=== PATIENT | female | born 1945 | race Caucasian/White ===

== ENCOUNTER 2018-01-30 11:39 | Inpatient (IN) | payer OTHER, MEDICAID ==
[~2018-01-30] VITALS: Ht 154.9 cm; Wt 206.6 kg
[2018-01-30] MEDS ORDERED: FUROSEMIDE 40 MG/4 ML VIAL IV ONE (11:45)
[2018-01-30 12:11] LABS: Basophils # (auto) 0.1 uL; Basophils % (auto) 0.8 % (0.0-2.0); Eosinophils # (auto) 0.1 uL; Eosinophils % (auto) 1.1 % (0.0-7.0); Hematocrit 41.1 % (36.0-46.0); Hemoglobin 13.1 g/dL (12.2-16.2); Lymphocytes % (auto) 13.5 % (10.0-50.0); Mean Corpuscular Hemoglobin 30.4 pg (28.0-32.0); Mean Corpuscular Hgb Conc. 31.8 g/dL (32.0-36.0); Mean Corpuscular Volume 95.6 fL (80.0-100.0); Monocytes # (auto) 0.7 uL; Monocytes % (auto) 9.6 % (0.0-12.0); Neutrophils # (auto) 5.6 uL; Nucleated Red Blood Cells % 0.1 %; Platelet Count (auto) 242 10^3/uL (140-450); Red Cell Distribution Width 15.8 % (11.8-14.3); White Blood Cell 7.5 10^3/uL (4.4-10.8)
[2018-01-30 12:25] LABS: INR 1.15 (0.9-1.15); Partial Thromboplastin Time 26.8 sec (22.64-33.71); Prothrombin Time 12.5 sec (9.37-12.3)
[2018-01-30 12:31] LABS: Alanine Aminotransferase 42 U/L (13-56); Albumin 3.4 g/dL (3.4-5.0); Alkaline Phosphatase 126 U/L (45-117); Anion Gap 10 (5-15); Aspartate Aminotransferase 41 U/L (15-37); BUN/Creatinine Ratio 16.4; Bilirubin, Total 1.2 mg/dL (0.2-1.0); Blood Urea Nitrogen 27 mg/dL (7-18); Calcium 8.8 mg/dL (8.5-10.1); Carbon Dioxide 24 mmol/L (21-32); Chloride 103 mmol/L (98-107); GFR African American 39 mL/min; GFR Non-African American 32 mL/min; Glucose 95 mg/dL (74-106); Potassium 4.2 mmol/L (3.5-5.1); Sodium 137 mmol/L (136-145); Total Protein 7.7 g/dL (6.4-8.2)
[2018-01-30] MEDS ORDERED: ACETAMINOPHEN 500 MG TAB PO PRN (14:00)
[2018-01-30] MEDS ORDERED: LACTULOSE 20Gm/30ML SOLN PO PRN (14:00)
[2018-01-30] MEDS ORDERED: MORPHINE SULFATE 4 MG/ML SYR/VIAL IV PRN ×2 (14:00)
[2018-01-30] MEDS ORDERED: NITROGLYCERIN 0.4 MG SL TAB SL PRN (14:00)
[2018-01-30] MEDS ORDERED: HYDROcodone-ACET 5/325MG TAB PO PRN (14:00)
[2018-01-30] MEDS ORDERED: CARVEDILOL 3.125 MG TAB PO ONE (14:15)
[2018-01-30] MEDS ORDERED: NITROGLYCERIN 0.2MG/HR TOPICAL PATCH TD ONE (14:15)
[2018-01-30] MEDS ORDERED: ASPirin 81 mg TAB PO ONE (14:15)
[2018-01-30] MEDS ORDERED: ENOXAPARIN SOD 30 MG/0.3 ML SYRINGE SC ONE (14:15)
[2018-01-30] MEDS ORDERED: ENALAPRIL MALEATE 2.5 MG TAB PO ONE (14:15)
[2018-01-30] MEDS: SODIUM CHLOR 0.9% PF (SALINE LOCK) 10ML VIAL IV SCH ×2 (14:39→22:13)
[2018-01-30] MEDS: DOBUTamine 1000MCG/ML 250 ML IV SCH (15:16)
[2018-01-30] MEDS: MAGNESIUM OXIDE 400 MG TAB PO SCH ×2 (15:59→22:13)
[2018-01-30] MEDS: CARVEDILOL 3.125 MG TAB PO SCH (21:46)
[2018-01-30] MEDS ORDERED: FUROSEMIDE 40 MG/4 ML VIAL IV SCH (22:00)
[2018-01-30] MEDS: NYSTATIN TOPICAL CREAM 15GM TOP SCH (22:13)
[2018-01-30] MEDS: FUROSEMIDE 40 MG/4 ML VIAL IV SCH (22:13)
[2018-01-31] MEDS: DOBUTamine 1000MCG/ML 250 ML IV SCH ×2 (02:00→11:54)
[2018-01-31 04:07] LABS: Alanine Aminotransferase 38 U/L (13-56); Albumin 3.1 g/dL (3.4-5.0); Anion Gap 7 (5-15); Aspartate Aminotransferase 32 U/L (15-37); BUN/Creatinine Ratio 19.9; Blood Urea Nitrogen 30 mg/dL (7-18); Calcium 8.3 mg/dL (8.5-10.1); Carbon Dioxide 26 mmol/L (21-32); Chloride 103 mmol/L (98-107); GFR African American 43 mL/min; GFR Non-African American 36 mL/min; Glucose 94 mg/dL (74-106); Potassium 3.5 mmol/L (3.5-5.1); Sodium 136 mmol/L (136-145)
[2018-01-31 04:13] LABS: Alkaline Phosphatase 118 U/L (45-117); Bilirubin, Total 1.1 mg/dL (0.2-1.0); Total Protein 7.1 g/dL (6.4-8.2)
[2018-01-31 05:04] LABS: Cholesterol 100 mg/dL (< 200); HDL Cholesterol 33 mg/dL (40-59); LDL Cholesterol 66 mg/dL (< 100); Triglycerides 85 mg/dL (< 150)
[2018-01-31] MEDS: SODIUM CHLOR 0.9% PF (SALINE LOCK) 10ML VIAL IV SCH ×3 (06:00→22:19)
[2018-01-31 09:40] LABS: Urine Bacteria NONE SEEN /hpf (None Seen); Urine Blood Negative /uL (Negative); Urine Mucus FEW (None Seen); Urine Specific Gravity 1.019 (1.001-1.035); Urine WBC 7 /hpf (0 - 5)
[2018-01-31] MEDS ORDERED: POTASSIUM CHL 20 Meq TABLET PO SCH (10:00)
[2018-01-31] MEDS ORDERED: ENOXAPARIN SOD 40 MG/0.4 ML SYRINGE SC SCH ×2 (10:00)
[2018-01-31] MEDS ORDERED: ENALAPRIL MALEATE 2.5 MG TAB PO SCH (10:00)
[2018-01-31] MEDS: NITROGLYCERIN 0.2MG/HR TOPICAL PATCH TD SCH (10:37)
[2018-01-31] MEDS: CARVEDILOL 3.125 MG TAB PO SCH ×2 (10:38→22:18)
[2018-01-31] MEDS: POTASSIUM CHL 20 Meq TABLET PO SCH (10:42)
[2018-01-31] MEDS: NYSTATIN TOPICAL CREAM 15GM TOP SCH ×3 (10:42→22:27)
[2018-01-31] MEDS: ENOXAPARIN SOD 30 MG/0.3 ML SYRINGE SC SCH (10:42)
[2018-01-31] MEDS: ASPirin 81 mg TAB PO SCH (10:42)
[2018-01-31] MEDS: MAGNESIUM OXIDE 400 MG TAB PO SCH ×2 (10:42→22:17)
[2018-01-31] MEDS: FUROSEMIDE 40 MG/4 ML VIAL IV SCH (12:14)
[2018-01-31] MEDS: PROMETHAZINE HCL 25 MG/ML 1ML IV PRN (14:53)
[2018-01-31] MEDS: LORazepam 0.5 MG TAB PO PRN (17:01)
[2018-01-31 17:30] VITALS: BP 102/67
[2018-01-31 17:32] VITALS: BP 102/67
[2018-01-31] MEDS ORDERED: ASPI81TA27 PO (18:26)
[2018-01-31] MEDS ORDERED: LOSA25TA9 PO (18:26)
[2018-01-31] MEDS ORDERED: SPIR25TA89 PO (18:26)
[2018-01-31] MEDS ORDERED: CLOP75TA28 PO (18:26)
[2018-01-31] MEDS ORDERED: METO25TA5 PO (18:26)
[2018-01-31 20:00] VITALS: BP 106/66
[2018-01-31 22:00] VITALS: BP 106/66
[2018-01-31] MEDS ORDERED: FAMOTIDINE 20 MG TAB PO SCH (22:00)
[2018-02-01] MEDS: PROMETHAZINE HCL 25 MG/ML 1ML IV PRN (00:37)
[2018-02-01 06:00] VITALS: BP 85/52
[2018-02-01] MEDS: SODIUM CHLOR 0.9% PF (SALINE LOCK) 10ML VIAL IV SCH ×3 (07:09→21:33)
[2018-02-01 09:00] VITALS: BP 102/68
[2018-02-01] MEDS: ENOXAPARIN SOD 30 MG/0.3 ML SYRINGE SC SCH (09:24)
[2018-02-01] MEDS: FAMOTIDINE 20 MG TAB PO SCH (09:24)
[2018-02-01] MEDS: MAGNESIUM OXIDE 400 MG TAB PO SCH ×2 (09:25→21:34)
[2018-02-01] MEDS: ASPirin 81 mg TAB PO SCH (09:25)
[2018-02-01] MEDS: POTASSIUM CHL 20 Meq TABLET PO SCH (09:25)
[2018-02-01] MEDS: CARVEDILOL 3.125 MG TAB PO SCH ×2 (09:25→21:34)
[2018-02-01] MEDS: NITROGLYCERIN 0.2MG/HR TOPICAL PATCH TD SCH (09:26)
[2018-02-01] MEDS ORDERED: FUROSEMIDE 20 MG TAB PO SCH (10:00)
[2018-02-01] MEDS: NYSTATIN TOPICAL CREAM 15GM TOP SCH ×2 (10:15→21:36)
[2018-02-01 12:00] VITALS: BP 81/56
[2018-02-01] MEDS ORDERED: METOCLOPRAMIDE HCL 5MG/ml INJ 2ml VIAL IV ONE ×2 (12:30→12:45)
[2018-02-01] MEDS ORDERED: ALBUMIN 25% 50 ML IV ONE (12:30)
[2018-02-01] MEDS ORDERED: ONDANSETRON HCL 4 MG/2 ML VIAL IV PRN (13:45)
[2018-02-01] MEDS: DOBUTamine 1000MCG/ML 250 ML IV SCH (14:03)
[2018-02-01 17:00] VITALS: BP 107/67
[2018-02-01] MEDS ORDERED: METOCLOPRAMIDE HCL 5MG/ml INJ 2ml VIAL IV SCH (18:00)
[2018-02-02 00:14] VITALS: BP 118/68
[2018-02-02] MEDS: DOBUTamine 1000MCG/ML 250 ML IV SCH ×3 (00:36→21:16)
[2018-02-02 05:47] VITALS: BP 106/63
[2018-02-02 06:01] LABS: Basophils # (auto) 0.1 uL; Basophils % (auto) 0.8 % (0.0-2.0); Eosinophils # (auto) 0.1 uL; Eosinophils % (auto) 1.9 % (0.0-7.0); Hematocrit 36.8 % (36.0-46.0); Hemoglobin 11.9 g/dL (12.2-16.2); Lymphocytes # (auto) 1.1 uL; Lymphocytes % (auto) 14.3 % (10.0-50.0); Mean Corpuscular Hemoglobin 30.5 pg (28.0-32.0); Mean Corpuscular Hgb Conc. 32.3 g/dL (32.0-36.0); Mean Corpuscular Volume 94.2 fL (80.0-100.0); Monocytes # (auto) 0.6 uL; Monocytes % (auto) 8.4 % (0.0-12.0); Neutrophils # (auto) 5.7 uL; Neutrophils % (auto) 74.6 % (37.0-80.0); Platelet Count (auto) 191 10^3/uL (140-450); Red Blood Cells 3.91 10^6/uL (4.0-5.20); Red Cell Distribution Width 15.6 % (11.8-14.3); White Blood Cell 7.7 10^3/uL (4.4-10.8)
[2018-02-02 06:31] LABS: Albumin 3.4 g/dL (3.4-5.0); BUN/Creatinine Ratio 18.9; Bilirubin, Total 1.1 mg/dL (0.2-1.0); Calcium 8.3 mg/dL (8.5-10.1); Potassium 4.7 mmol/L (3.5-5.1)
[2018-02-02] MEDS: SODIUM CHLOR 0.9% PF (SALINE LOCK) 10ML VIAL IV SCH ×3 (06:40→21:14)
[2018-02-02] MEDS ORDERED: ADENOSINE 68 MG in GIVE UN-DILUTED 0 ML IV STA (08:22)
[2018-02-02 09:00] VITALS: BP 103/70
[2018-02-02] MEDS: NYSTATIN TOPICAL CREAM 15GM TOP SCH ×2 (09:25→22:00)
[2018-02-02] MEDS: ENOXAPARIN SOD 30 MG/0.3 ML SYRINGE SC SCH (09:26)
[2018-02-02] MEDS: MAGNESIUM OXIDE 400 MG TAB PO SCH ×2 (09:26→21:14)
[2018-02-02] MEDS: FAMOTIDINE 20 MG TAB PO SCH (09:26)
[2018-02-02] MEDS: ASPirin 81 mg TAB PO SCH (09:27)
[2018-02-02] MEDS: POTASSIUM CHL 20 Meq TABLET PO SCH (09:27)
[2018-02-02] MEDS: CLOPIDOGREL BISULFATE 75 MG TAB PO SCH (11:56)
[2018-02-02 13:00] VITALS: BP 108/73
[2018-02-02 17:00] VITALS: BP 116/66
[2018-02-02] MEDS: LORazepam 0.5 MG TAB PO PRN (17:30)
[2018-02-02 23:13] VITALS: BP 101/54
[2018-02-03 05:31] VITALS: BP 109/74
[2018-02-03] MEDS: SODIUM CHLOR 0.9% PF (SALINE LOCK) 10ML VIAL IV SCH ×3 (05:58→22:00)
[2018-02-03 07:02] LABS: Potassium 4.8 mmol/L (3.5-5.1)
[2018-02-03 07:08] LABS: Albumin 3.1 g/dL (3.4-5.0); Calcium 8.6 mg/dL (8.5-10.1)
[2018-02-03 07:11] LABS: Bilirubin, Total 1.4 mg/dL (0.2-1.0); Total Protein 6.5 g/dL (6.4-8.2)
[2018-02-03 08:50] VITALS: BP 110/67
[2018-02-03] MEDS ORDERED: DOBUTamine 1000MCG/ML 250 ML IV SCH (09:30)
[2018-02-03] MEDS: FAMOTIDINE 20 MG TAB PO SCH (09:49)
[2018-02-03] MEDS: CLOPIDOGREL BISULFATE 75 MG TAB PO SCH (09:49)
[2018-02-03] MEDS: ENOXAPARIN SOD 30 MG/0.3 ML SYRINGE SC SCH (09:49)
[2018-02-03] MEDS: MAGNESIUM OXIDE 400 MG TAB PO SCH ×2 (09:49→22:33)
[2018-02-03] MEDS: ASPirin 81 mg TAB PO SCH (09:49)
[2018-02-03] MEDS: NYSTATIN TOPICAL CREAM 15GM TOP SCH ×2 (09:50→22:00)
[2018-02-03] MEDS: DOBUTamine 1000MCG/ML 250 ML IV SCH (11:00)
[2018-02-03 12:37] VITALS: BP 109/55
[2018-02-03 17:00] VITALS: BP 110/63
[2018-02-03] MEDS: LORazepam 0.5 MG TAB PO PRN (17:58)
[2018-02-03 22:00] VITALS: BP 102/57
[2018-02-03] MEDS: TEMAZEPAM 15 MG CAP PO PRN (22:34)
[2018-02-04 05:00] VITALS: BP 91/54
[2018-02-04] MEDS: SODIUM CHLOR 0.9% PF (SALINE LOCK) 10ML VIAL IV SCH ×3 (06:00→21:16)
[2018-02-04 06:01] LABS: Basophils # (auto) 0 uL; Basophils % (auto) 0.7 % (0.0-2.0); Eosinophils # (auto) 0.2 uL; Eosinophils % (auto) 2.8 % (0.0-7.0); Hematocrit 35.3 % (36.0-46.0); Hemoglobin 11.7 g/dL (12.2-16.2); Lymphocytes # (auto) 0.8 uL; Lymphocytes % (auto) 13.5 % (10.0-50.0); Mean Corpuscular Hemoglobin 31.2 pg (28.0-32.0); Mean Corpuscular Hgb Conc. 33.2 g/dL (32.0-36.0); Mean Corpuscular Volume 94.1 fL (80.0-100.0); Monocytes # (auto) 0.7 uL; Monocytes % (auto) 10.7 % (0.0-12.0); Neutrophils # (auto) 4.5 uL; Neutrophils % (auto) 72.3 % (37.0-80.0); Platelet Count (auto) 182 10^3/uL (140-450); Red Blood Cells 3.75 10^6/uL (4.0-5.20); White Blood Cell 6.2 10^3/uL (4.4-10.8)
[2018-02-04 06:20] LABS: BUN/Creatinine Ratio 19.9; Calcium 8.1 mg/dL (8.5-10.1); Magnesium 2.8 mg/dL (1.6-2.6); Potassium 4.7 mmol/L (3.5-5.1)
[2018-02-04] MEDS: DOBUTamine 1000MCG/ML 250 ML IV SCH ×2 (07:40→08:29)
[2018-02-04 09:00] VITALS: BP 95/64
[2018-02-04] MEDS: MAGNESIUM OXIDE 400 MG TAB PO SCH ×2 (09:53→21:16)
[2018-02-04] MEDS: ENOXAPARIN SOD 30 MG/0.3 ML SYRINGE SC SCH (09:53)
[2018-02-04] MEDS: ASPirin 81 mg TAB PO SCH (09:53)
[2018-02-04] MEDS: FAMOTIDINE 20 MG TAB PO SCH (09:53)
[2018-02-04] MEDS: CLOPIDOGREL BISULFATE 75 MG TAB PO SCH (09:53)
[2018-02-04] MEDS: NYSTATIN TOPICAL CREAM 15GM TOP SCH ×2 (09:54→21:15)
[2018-02-04 13:00] VITALS: BP 100/59
[2018-02-04] MEDS: LORazepam 0.5 MG TAB PO PRN (14:23)
[2018-02-04 17:00] VITALS: BP 115/69
[2018-02-04] MEDS: TEMAZEPAM 15 MG CAP PO PRN (21:16)
[2018-02-04 23:19] VITALS: BP 108/65
[2018-02-05] VITALS (7 sets, daily range): BP systolic 87–114; BP diastolic 53–75
[2018-02-05] MEDS: SODIUM CHLOR 0.9% PF (SALINE LOCK) 10ML VIAL IV SCH ×2 (05:08→14:14)
[2018-02-05 06:48] LABS: Basophils # (auto) 0 uL; Basophils % (auto) 0.8 % (0.0-2.0); Eosinophils # (auto) 0.2 uL; Eosinophils % (auto) 2.9 % (0.0-7.0); Hematocrit 36.5 % (36.0-46.0); Hemoglobin 11.9 g/dL (12.2-16.2); Lymphocytes # (auto) 0.6 uL; Lymphocytes % (auto) 10.5 % (10.0-50.0); Mean Corpuscular Hgb Conc. 32.7 g/dL (32.0-36.0); Mean Corpuscular Volume 94.7 fL (80.0-100.0); Monocytes # (auto) 0.7 uL; Neutrophils # (auto) 4.6 uL; Neutrophils % (auto) 74.8 % (37.0-80.0); Platelet Count (auto) 189 10^3/uL (140-450); Red Blood Cells 3.85 10^6/uL (4.0-5.20); Red Cell Distribution Width 15.2 % (11.8-14.3); White Blood Cell 6.2 10^3/uL (4.4-10.8)
[2018-02-05 06:51] LABS: Potassium 4.8 mmol/L (3.5-5.1)
[2018-02-05] MEDS: DOBUTamine 1000MCG/ML 250 ML IV SCH (06:59)
[2018-02-05 07:00] LABS: BUN/Creatinine Ratio 24.4; Calcium 8.9 mg/dL (8.5-10.1)
[2018-02-05] MEDS ORDERED: DOBUTamine 1000MCG/ML 250 ML IV SCH (09:45)
[2018-02-05] MEDS: MAGNESIUM OXIDE 400 MG TAB PO SCH (10:00)
[2018-02-05] MEDS: FAMOTIDINE 20 MG TAB PO SCH (10:31)
[2018-02-05] MEDS: CLOPIDOGREL BISULFATE 75 MG TAB PO SCH (10:31)
[2018-02-05] MEDS: ASPirin 81 mg TAB PO SCH (10:31)
[2018-02-05] MEDS: ENOXAPARIN SOD 30 MG/0.3 ML SYRINGE SC SCH (10:32)
[2018-02-05] MEDS: NYSTATIN TOPICAL CREAM 15GM TOP SCH (12:54)
[2018-02-05] MEDS: LORazepam 0.5 MG TAB PO PRN (16:28)
== END 2018-02-05 18:50 | disposition home or self-care (01) | DRG 291 ==
LOC: ER 11:39 → TELE 11:40 → TELE-WESTW 01-31 16:31
PROVIDERS: ADMIT Internal Medicine; ATTEND Hospitalist
DX: I13.0 Hypertensive heart and chronic kidney disease with heart failure and stage 1 through stage 4 chronic kidney disease, or unspecified chronic kidney disease (principal); J96.20 Acute and chronic respiratory failure, unspecified whether with hypoxia or hypercapnia; R57.0 Cardiogenic shock; I50.43 Acute on chronic combined systolic (congestive) and diastolic (congestive) heart failure; N17.9 Acute kidney failure, unspecified; I42.0 Dilated cardiomyopathy; I25.10 Atherosclerotic heart disease of native coronary artery without angina pectoris; I50.84 End stage heart failure; N18.9 Chronic kidney disease, unspecified; I25.2 Old myocardial infarction; Z85.3 Personal history of malignant neoplasm of breast; Z87.891 Personal history of nicotine dependence; Z90.710 Acquired absence of both cervix and uterus; Z91.19 Patient's noncompliance with other medical treatment and regimen; Z95.0 Presence of cardiac pacemaker; Z95.5 Presence of coronary angioplasty implant and graft; Z88.5 Allergy status to narcotic agent
CPT/HCPCS: 36415; 71046; 80048; 80053; 80061; 81001; 82550; 83735; 83880; 84484; 85025; 85610; 85730; 93005; 93306; 96374; 99291; J0153; J2405

== ENCOUNTER 2018-03-13 09:18 | Inpatient (IN) | payer OTHER, MEDICAID ==
[~2018-03-13] VITALS: Ht 154.9 cm; Wt 83.9 kg
[~2018-03-13 09:18] MED LIST: ASPI81TA27 PO; CLOP75TA28 PO
[2018-03-13 10:19] LABS: Basophils # (auto) 0 uL; Basophils % (auto) 0.6 % (0.0-2.0); Eosinophils # (auto) 0.1 uL; Eosinophils % (auto) 1.4 % (0.0-7.0); Hematocrit 40.6 % (36.0-46.0); Lymphocytes # (auto) 0.8 uL; Lymphocytes % (auto) 13.1 % (10.0-50.0); Mean Corpuscular Hemoglobin 28.4 pg (28.0-32.0); Mean Corpuscular Hgb Conc. 32.1 g/dL (32.0-36.0); Mean Corpuscular Volume 88.5 fL (80.0-100.0); Monocytes # (auto) 0.6 uL; Monocytes % (auto) 9.1 % (0.0-12.0); Neutrophils # (auto) 4.8 uL; Neutrophils % (auto) 75.8 % (37.0-80.0); Nucleated Red Blood Cells % 0.1 %; Platelet Count (auto) 216 10^3/uL (140-450); Red Blood Cells 4.59 10^6/uL (4.0-5.20); Red Cell Distribution Width 15.8 % (11.8-14.3); White Blood Cell 6.3 10^3/uL (4.4-10.8)
[2018-03-13 10:39] LABS: Alanine Aminotransferase 22 U/L (13-56); Albumin 3.3 g/dL (3.4-5.0); Alkaline Phosphatase 150 U/L (45-117); Anion Gap 10 (5-15); Aspartate Aminotransferase 31 U/L (15-37); BUN/Creatinine Ratio 17.8; Bilirubin, Total 1.3 mg/dL (0.2-1.0); Blood Urea Nitrogen 30 mg/dL (7-18); Calcium 9.5 mg/dL (8.5-10.1); Carbon Dioxide 32 mmol/L (21-32); Chloride 98 mmol/L (98-107); GFR African American 38 mL/min; GFR Non-African American 31 mL/min; Glucose 83 mg/dL (74-106); Magnesium 2.4 mg/dL (1.6-2.6); Potassium 3.7 mmol/L (3.5-5.1); Sodium 140 mmol/L (136-145); Total Protein 7.3 g/dL (6.4-8.2)
[2018-03-13] MEDS: FUROSEMIDE 40 MG/4 ML VIAL IV ONE ×2 (11:15→11:24)
[2018-03-13] MEDS ORDERED: LORazepam 0.5 MG TAB PO PRN (11:30)
[2018-03-13] MEDS ORDERED: ALBUTEROL SULF 2.5 MG/0.5ML(0.5%) NEB SOLN NEB PRN (11:30)
[2018-03-13] MEDS ORDERED: HYDROcodone-ACET 5/325MG TAB PO PRN (11:30)
[2018-03-13] MEDS ORDERED: MORPHINE SULFATE 4 MG/ML SYR/VIAL IV PRN ×2 (11:30)
[2018-03-13] MEDS ORDERED: LACTULOSE 20Gm/30ML SOLN PO PRN (11:30)
[2018-03-13] MEDS ORDERED: NITROGLYCERIN 0.4 MG SL TAB SL PRN (11:30)
[2018-03-13] MEDS ORDERED: ENOXAPARIN SOD 40 MG/0.4 ML SYRINGE SC SCH (12:00)
[2018-03-13] MEDS: ALBUTEROL SULF 2.5 MG/0.5ML(0.5%) NEB SOLN NEB SCH ×2 (12:41→19:50)
[2018-03-13 13:00] LABS: CRP High Sensitivity 2.68 mg/dL (< 0.3)
[2018-03-13 13:02] VITALS: BP 117/64
[2018-03-13] MEDS: POTASSIUM CHL 20 Meq TABLET PO SCH (14:31)
[2018-03-13] MEDS: CARVEDILOL 3.125 MG TAB PO SCH ×2 (14:31→22:00)
[2018-03-13] MEDS: ENOXAPARIN SOD 30 MG/0.3 ML SYRINGE SC SCH (14:32)
[2018-03-13] MEDS: SODIUM CHLOR 0.9% PF (SALINE LOCK) 10ML VIAL/SYR IV SCH ×2 (14:32→22:02)
[2018-03-13] MEDS ORDERED: FUROSEMIDE 40 MG/4 ML VIAL IV ONE (15:45)
[2018-03-13] MEDS ORDERED: FURO20TA PO (17:10)
[2018-03-13] MEDS ORDERED: FURO40TA PO (17:10)
[2018-03-13] MEDS: PROMETHAZINE HCL 25 MG/ML 1ML IV PRN (19:54)
[2018-03-13 20:00] VITALS: BP 85/58
[2018-03-13] MEDS ORDERED: ALBUMIN 5% 250 ML IV ONE (21:45)
[2018-03-13 22:00] VITALS: BP 85/58
[2018-03-13] MEDS: TEMAZEPAM 15 MG CAP PO PRN (23:31)
[2018-03-14] VITALS (7 sets, daily range): BP systolic 88–119; BP diastolic 54–73
[2018-03-14] MEDS: SODIUM CHLOR 0.9% PF (SALINE LOCK) 10ML VIAL/SYR IV SCH ×3 (06:15→22:08)
[2018-03-14 06:29] LABS: Basophils # (auto) 0 uL; Basophils % (auto) 0.7 % (0.0-2.0); Eosinophils # (auto) 0 uL; Eosinophils % (auto) 0.4 % (0.0-7.0); Hematocrit 36.6 % (36.0-46.0); Hemoglobin 12.1 g/dL (12.2-16.2); Lymphocytes # (auto) 0.6 uL; Lymphocytes % (auto) 9.6 % (10.0-50.0); Mean Corpuscular Hgb Conc. 32.9 g/dL (32.0-36.0); Mean Corpuscular Volume 88.1 fL (80.0-100.0); Monocytes # (auto) 0.5 uL; Monocytes % (auto) 7.9 % (0.0-12.0); Neutrophils # (auto) 4.7 uL; Neutrophils % (auto) 81.4 % (37.0-80.0); Platelet Count (auto) 163 10^3/uL (140-450); Red Blood Cells 4.16 10^6/uL (4.0-5.20); Red Cell Distribution Width 16.1 % (11.8-14.3); White Blood Cell 5.8 10^3/uL (4.4-10.8)
[2018-03-14 07:33] LABS: Albumin 3.2 g/dL (3.4-5.0); BUN/Creatinine Ratio 21.7; Bilirubin, Total 1.4 mg/dL (0.2-1.0); Total Protein 6.6 g/dL (6.4-8.2)
[2018-03-14] MEDS: ALBUTEROL SULF 2.5 MG/0.5ML(0.5%) NEB SOLN NEB SCH ×4 (07:44→18:00)
[2018-03-14 07:54] LABS: Potassium 3.4 mmol/L (3.5-5.1)
[2018-03-14] MEDS: CARVEDILOL 3.125 MG TAB PO SCH (10:00)
[2018-03-14] MEDS ORDERED: FUROSEMIDE 40 MG/4 ML VIAL IV SCH (10:00)
[2018-03-14] MEDS: POTASSIUM CHL 20 Meq TABLET PO SCH ×3 (10:49→22:08)
[2018-03-14] MEDS: CLOPIDOGREL BISULFATE 75 MG TAB PO SCH (10:50)
[2018-03-14] MEDS: ENOXAPARIN SOD 30 MG/0.3 ML SYRINGE SC SCH (10:50)
[2018-03-14] MEDS: ASPirin 81 mg TAB PO SCH (10:50)
[2018-03-14] MEDS ORDERED: DOPamine 1600MCG/ML D5W 250 ML IV SCH (16:00)
[2018-03-14] MEDS ORDERED: FAMOTIDINE INJECTION 40 MG in SODIUM CHL 0.9% 100 ML IV ONE (17:00)
[2018-03-14] MEDS ORDERED: FAMOTIDINE (10MG/ML) 2ML VL IV ONE (17:00)
[2018-03-14] MEDS: DOPamine 1600MCG/ML D5W 250 ML IV SCH (17:08)
[2018-03-14] MEDS: FUROSEMIDE 40 MG/4 ML VIAL IV SCH (18:47)
[2018-03-14] MEDS: FAMOTIDINE 20 MG TAB PO SCH (22:10)
[2018-03-15] VITALS (7 sets, daily range): BP systolic 100–159; BP diastolic 57–70
[2018-03-15] MEDS: SODIUM CHLOR 0.9% PF (SALINE LOCK) 10ML VIAL/SYR IV SCH ×3 (06:12→22:12)
[2018-03-15] MEDS: FUROSEMIDE 40 MG/4 ML VIAL IV SCH ×2 (06:20→18:17)
[2018-03-15] MEDS: ALBUTEROL SULF 2.5 MG/0.5ML(0.5%) NEB SOLN NEB SCH ×2 (06:33)
[2018-03-15] MEDS: ACETAMINOPHEN 500 MG TAB PO PRN (06:58)
[2018-03-15 07:39] LABS: BUN/Creatinine Ratio 24.3; Calcium 8.7 mg/dL (8.5-10.1); Potassium 3.5 mmol/L (3.5-5.1)
[2018-03-15] MEDS: POTASSIUM CHL 20 Meq TABLET PO SCH ×2 (09:39→22:13)
[2018-03-15] MEDS: CLOPIDOGREL BISULFATE 75 MG TAB PO SCH (09:39)
[2018-03-15] MEDS: ASPirin 81 mg TAB PO SCH (09:39)
[2018-03-15] MEDS: FAMOTIDINE 20 MG TAB PO SCH ×2 (09:39→22:13)
[2018-03-15] MEDS: ENOXAPARIN SOD 30 MG/0.3 ML SYRINGE SC SCH (09:40)
[2018-03-15] MEDS ORDERED: FUROSEMIDE 40 MG/4 ML VIAL IV ONE (09:45)
[2018-03-15] MEDS: ENOXAPARIN SOD 40 MG/0.4 ML SYRINGE SC SCH (10:04)
[2018-03-15] MEDS: LORazepam 2MG/ML-1ML VIAL IV PRN (15:13)
[2018-03-15] MEDS: DOPamine 1600MCG/ML D5W 250 ML IV SCH (16:40)
[2018-03-16 05:00] VITALS: BP 107/68
[2018-03-16] MEDS: SODIUM CHLOR 0.9% PF (SALINE LOCK) 10ML VIAL/SYR IV SCH ×3 (05:59→22:07)
[2018-03-16] MEDS: FUROSEMIDE 40 MG/4 ML VIAL IV SCH ×2 (05:59→18:39)
[2018-03-16 06:25] LABS: INR 1.28 (0.9-1.15); Partial Thromboplastin Time 29.9 sec (22.64-33.71)
[2018-03-16 06:35] LABS: BUN/Creatinine Ratio 20.3; Calcium 8.4 mg/dL (8.5-10.1); Potassium 3.3 mmol/L (3.5-5.1)
[2018-03-16 09:00] VITALS: BP 100/65
[2018-03-16] MEDS: ASPirin 81 mg TAB PO SCH (09:37)
[2018-03-16] MEDS: ENOXAPARIN SOD 40 MG/0.4 ML SYRINGE SC SCH (09:37)
[2018-03-16] MEDS: CLOPIDOGREL BISULFATE 75 MG TAB PO SCH (09:39)
[2018-03-16] MEDS: FAMOTIDINE 20 MG TAB PO SCH ×2 (09:39→22:07)
[2018-03-16] MEDS: POTASSIUM CHL 20 Meq TABLET PO SCH ×2 (09:39→22:07)
[2018-03-16 10:44] VITALS: BP 100/65
[2018-03-16 13:00] VITALS: BP 100/65
[2018-03-16] MEDS: LORazepam 2MG/ML-1ML VIAL IV PRN (15:49)
[2018-03-16 17:00] VITALS: BP 107/54
[2018-03-16] MEDS: DOPamine 1600MCG/ML D5W 250 ML IV SCH (17:00)
[2018-03-16] MEDS ORDERED: POTASSIUM CHL 20 Meq TABLET PO ONE (17:15)
[2018-03-16 22:00] VITALS: BP 96/68
[2018-03-16 23:04] LABS: Urine Amorphous Crystal FEW /hpf (None Seen); Urine Bacteria NONE SEEN /hpf (None Seen); Urine Blood Negative /uL (Negative); Urine Specific Gravity 1.009 (1.001-1.035); Urine WBC 6 /hpf (0 - 5)
[2018-03-17 04:47] VITALS: BP 90/46
[2018-03-17] MEDS: FUROSEMIDE 40 MG/4 ML VIAL IV SCH ×2 (06:53→18:11)
[2018-03-17] MEDS: SODIUM CHLOR 0.9% PF (SALINE LOCK) 10ML VIAL/SYR IV SCH ×3 (06:53→21:20)
[2018-03-17 07:13] LABS: Basophils # (auto) 0.1 uL; Eosinophils # (auto) 0.2 uL; Eosinophils % (auto) 2.9 % (0.0-7.0); Hematocrit 38.7 % (36.0-46.0); Hemoglobin 12.6 g/dL (12.2-16.2); Lymphocytes # (auto) 0.7 uL; Lymphocytes % (auto) 10.9 % (10.0-50.0); Mean Corpuscular Hemoglobin 28.7 pg (28.0-32.0); Mean Corpuscular Hgb Conc. 32.5 g/dL (32.0-36.0); Mean Corpuscular Volume 88.1 fL (80.0-100.0); Monocytes # (auto) 0.7 uL; Monocytes % (auto) 10.6 % (0.0-12.0); Neutrophils # (auto) 4.7 uL; Neutrophils % (auto) 74.6 % (37.0-80.0); Nucleated Red Blood Cells % 0.1 %; Platelet Count (auto) 194 10^3/uL (140-450); Red Cell Distribution Width 16.3 % (11.8-14.3); White Blood Cell 6.3 10^3/uL (4.4-10.8)
[2018-03-17 07:27] LABS: BUN/Creatinine Ratio 16.5; Calcium 9.1 mg/dL (8.5-10.1); Potassium 4.2 mmol/L (3.5-5.1)
[2018-03-17] MEDS: ASPirin 81 mg TAB PO SCH (07:34)
[2018-03-17] MEDS: CLOPIDOGREL BISULFATE 75 MG TAB PO SCH (07:34)
[2018-03-17] MEDS: ENOXAPARIN SOD 40 MG/0.4 ML SYRINGE SC SCH (07:34)
[2018-03-17 08:05] VITALS: BP 90/46
[2018-03-17 08:48] VITALS: BP 108/63
[2018-03-17] MEDS: FAMOTIDINE 20 MG TAB PO SCH ×2 (09:53→21:20)
[2018-03-17] MEDS: POTASSIUM CHL 20 Meq TABLET PO SCH ×2 (09:53→21:20)
[2018-03-17] MEDS: PROMETHAZINE HCL 25 MG/ML 1ML IV PRN ×2 (11:23→20:13)
[2018-03-17] MEDS: DOPamine 1600MCG/ML D5W 250 ML IV SCH (11:24)
[2018-03-17] MEDS: LORazepam 2MG/ML-1ML VIAL IV PRN ×2 (13:05→21:20)
[2018-03-17 14:22] VITALS: BP 95/52
[2018-03-17 17:07] VITALS: BP 94/43
[2018-03-17 20:21] VITALS: BP 91/54
[2018-03-17] MEDS: TEMAZEPAM 15 MG CAP PO PRN (22:38)
[2018-03-18 04:53] VITALS: BP 99/60
[2018-03-18] MEDS: SODIUM CHLOR 0.9% PF (SALINE LOCK) 10ML VIAL/SYR IV SCH ×3 (06:38→21:41)
[2018-03-18] MEDS: FUROSEMIDE 40 MG/4 ML VIAL IV SCH ×2 (06:39→17:43)
[2018-03-18 06:50] LABS: Basophils # (auto) 0.1 uL; Basophils % (auto) 0.8 % (0.0-2.0); Eosinophils # (auto) 0.1 uL; Hematocrit 38.4 % (36.0-46.0); Hemoglobin 12.5 g/dL (12.2-16.2); Lymphocytes # (auto) 0.9 uL; Mean Corpuscular Hemoglobin 28.7 pg (28.0-32.0); Mean Corpuscular Hgb Conc. 32.6 g/dL (32.0-36.0); Monocytes # (auto) 0.7 uL; Monocytes % (auto) 10.7 % (0.0-12.0); Neutrophils # (auto) 4.5 uL; Neutrophils % (auto) 72.5 % (37.0-80.0); Nucleated Red Blood Cells % 0.2 %; Platelet Count (auto) 197 10^3/uL (140-450); Red Blood Cells 4.37 10^6/uL (4.0-5.20); Red Cell Distribution Width 16.2 % (11.8-14.3); White Blood Cell 6.2 10^3/uL (4.4-10.8)
[2018-03-18 07:19] LABS: BUN/Creatinine Ratio 17.8; Calcium 8.9 mg/dL (8.5-10.1); Magnesium 2.3 mg/dL (1.6-2.6); Potassium 3.9 mmol/L (3.5-5.1)
[2018-03-18] MEDS ORDERED: SODIUM CHLORIDE 0.9% 1,000 ML IV SCH (07:30)
[2018-03-18 08:00] VITALS: BP 110/61
[2018-03-18 08:37] VITALS: BP 110/61
[2018-03-18] MEDS: FAMOTIDINE 20 MG TAB PO SCH ×2 (09:27→21:41)
[2018-03-18] MEDS: POTASSIUM CHL 20 Meq TABLET PO SCH ×2 (09:27→21:41)
[2018-03-18 12:40] VITALS: BP 100/63
[2018-03-18] MEDS ORDERED: VANCOMYCIN HCL 1000 MG VL ONE (13:49)
[2018-03-18] MEDS ORDERED: VANCOMYCIN 1GM/250ML 250 ML IV ONE (13:50)
[2018-03-18] MEDS ORDERED: BACITRACIN INJ 50000 UNIT VIAL ONE (13:50)
[2018-03-18] MEDS ORDERED: LIDOCAINE 2%HCL (LOCAL ANESTH.) INJ 20ML MDV ONE (14:02)
[2018-03-18] MEDS ORDERED: fentaNYL CITRATE 100 MCG/2 ML VL ONE (14:17)
[2018-03-18] MEDS ORDERED: MIDAZOLAM HCL 1MG/1ML-2 ML VIAL ONE (14:18)
[2018-03-18] MEDS ORDERED: HYDROcodone-ACET 5/325MG TAB PO PRN (16:45)
[2018-03-18] MEDS: DOPamine 1600MCG/ML D5W 250 ML IV SCH (17:00)
[2018-03-18] MEDS: PROMETHAZINE HCL 25 MG/ML 1ML IV PRN (17:32)
[2018-03-18 17:41] VITALS: BP 114/78
[2018-03-18] MEDS: ceFAZolin 1GM 2 GM in D5W 5% 100 ML IV SCH (19:19)
[2018-03-18] MEDS: LORazepam 2MG/ML-1ML VIAL IV PRN (19:43)
[2018-03-18 20:00] VITALS: BP 103/64
[2018-03-18] MEDS: TEMAZEPAM 15 MG CAP PO PRN (23:47)
[2018-03-19] MEDS: ceFAZolin 1GM 2 GM in D5W 5% 100 ML IV SCH ×2 (00:15→05:20)
[2018-03-19] MEDS: ACETAMINOPHEN 500 MG TAB PO PRN (00:58)
[2018-03-19 04:55] VITALS: BP 108/78
[2018-03-19] MEDS: SODIUM CHLOR 0.9% PF (SALINE LOCK) 10ML VIAL/SYR IV SCH ×2 (05:20→14:00)
[2018-03-19] MEDS: FUROSEMIDE 40 MG/4 ML VIAL IV SCH ×2 (05:20→17:50)
[2018-03-19 06:47] LABS: Basophils # (auto) 0.1 uL; Basophils % (auto) 0.8 % (0.0-2.0); Eosinophils # (auto) 0.1 uL; Eosinophils % (auto) 1.2 % (0.0-7.0); Hemoglobin 12.1 g/dL (12.2-16.2); Lymphocytes # (auto) 0.9 uL; Lymphocytes % (auto) 12.4 % (10.0-50.0); Mean Corpuscular Hgb Conc. 32.8 g/dL (32.0-36.0); Mean Corpuscular Volume 88.6 fL (80.0-100.0); Monocytes # (auto) 0.9 uL; Monocytes % (auto) 12.8 % (0.0-12.0); Neutrophils # (auto) 5.3 uL; Neutrophils % (auto) 72.8 % (37.0-80.0); Nucleated Red Blood Cells % 0.2 %; Platelet Count (auto) 184 10^3/uL (140-450); Red Blood Cells 4.17 10^6/uL (4.0-5.20); Red Cell Distribution Width 16.2 % (11.8-14.3); White Blood Cell 7.3 10^3/uL (4.4-10.8)
[2018-03-19 07:14] LABS: Calcium 9.2 mg/dL (8.5-10.1); Potassium 4.5 mmol/L (3.5-5.1)
[2018-03-19 07:17] LABS: BUN/Creatinine Ratio 16.1
[2018-03-19 07:43] VITALS: BP 94/63
[2018-03-19 08:25] VITALS: BP 94/63
[2018-03-19] MEDS: FAMOTIDINE 20 MG TAB PO SCH (09:51)
[2018-03-19] MEDS: POTASSIUM CHL 20 Meq TABLET PO SCH (09:51)
[2018-03-19] MEDS: PROMETHAZINE HCL 25 MG/ML 1ML IV PRN (11:05)
[2018-03-19 11:22] VITALS: BP 163/92
[2018-03-19] MEDS: LORazepam 2MG/ML-1ML VIAL IV PRN ×2 (11:43→17:50)
[2018-03-19] MEDS ORDERED: ALPRAZolam 0.25 MG TAB PO ONE (14:30)
[2018-03-19 17:11] VITALS: BP 131/75
[2018-03-19] MEDS ORDERED: HYDR-4683 PO (17:42)
[2018-03-19] MEDS ORDERED: FURO40TA PO (17:43)
[2018-03-19] MEDS ORDERED: DOXY-216 PO (17:43)
== END 2018-03-19 19:19 | disposition home health service (06) | DRG 226 ==
LOC: ER 09:18 → TELE 09:19 → TELE-EAST 16:01 → TELE 16:02 → TELE-EAST 16:07
PROVIDERS: ADMIT Internal Medicine; ATTEND Hospitalist
PROC: 0W9G3ZZ Drainage of Peritoneal Cavity, Percutaneous Approach (ICD-10-PCS; 2018-03-17)
PROC: 0JH608Z Insertion of Defibrillator Generator into Chest Subcutaneous Tissue and Fascia, Open Approach (ICD-10-PCS; principal; 2018-03-18)
PROC: 02HK3KZ Insertion of Defibrillator Lead into Right Ventricle, Percutaneous Approach (ICD-10-PCS; 2018-03-18)
PROC: 02H63KZ Insertion of Defibrillator Lead into Right Atrium, Percutaneous Approach (ICD-10-PCS; 2018-03-18)
PROC: B5161ZZ Fluoroscopy of Right Subclavian Vein using Low Osmolar Contrast (ICD-10-PCS; 2018-03-18)
DX: I13.0 Hypertensive heart and chronic kidney disease with heart failure and stage 1 through stage 4 chronic kidney disease, or unspecified chronic kidney disease (principal); I50.23 Acute on chronic systolic (congestive) heart failure; N17.9 Acute kidney failure, unspecified; I42.0 Dilated cardiomyopathy; R18.8 Other ascites; R64 Cachexia; N18.3 Chronic kidney disease, stage 3 (moderate); I34.0 Nonrheumatic mitral (valve) insufficiency; I25.5 Ischemic cardiomyopathy; I25.10 Atherosclerotic heart disease of native coronary artery without angina pectoris; K59.00 Constipation, unspecified; I50.810 Right heart failure, unspecified; E78.5 Hyperlipidemia, unspecified; I25.2 Old myocardial infarction; Z90.12 Acquired absence of left breast and nipple; Z68.34 Body mass index [BMI] 34.0-34.9, adult; Z79.02 Long term (current) use of antithrombotics/antiplatelets; Z79.82 Long term (current) use of aspirin; Z81.8 Family history of other mental and behavioral disorders; Z82.0 Family history of epilepsy and other diseases of the nervous system; Z82.49 Family history of ischemic heart disease and other diseases of the circulatory system; Z85.3 Personal history of malignant neoplasm of breast; Z87.891 Personal history of nicotine dependence; Z90.710 Acquired absence of both cervix and uterus; Z91.19 Patient's noncompliance with other medical treatment and regimen; Z92.21 Personal history of antineoplastic chemotherapy; Z92.3 Personal history of irradiation; Z88.5 Allergy status to narcotic agent; Z79.899 Other long term (current) drug therapy; Z95.5 Presence of coronary angioplasty implant and graft
CPT/HCPCS: 10022; 33249; 36415; 71045; 74176; 76700; 76775; 76942; 80048; 80053; 80061; 81001; 82150; 82378; 82550; 83690; 83735; 83880; 84443; 84484; 85025; 85379; 85610; 85652; 85730; 86141; 86850; 86900; 86901; 87205; 89051; 93005; 93971; 94640; 96374; 97116; 97163; 97530; 99152; J0690; J2250; J3490; J7060